=== PATIENT | male | born 1975 ===

== ENCOUNTER 2018-09-09 13:42 | Emergency (ER) | payer OTHER ==
[~2018-09-09] VITALS: Ht 182.9 cm; Wt 113.4 kg
[2018-09-09] MEDS ORDERED: COZAAR25 MG (13:58)
== END 2018-09-09 17:14 | disposition home or self-care (01) ==
LOC: ER 13:42 → CPU-OBS 14:06 → ER 17:14
DX: R07.89 Other chest pain (principal); I10 Essential (primary) hypertension
CPT/HCPCS: G0378; G0379; 93005